=== PATIENT | female | born 1975 | race African-American/Black ===

== ENCOUNTER 2018-09-21 11:55 | Inpatient (IN) | payer MEDICARE, MEDICAID ==
[~2018-09-21] VITALS: Ht 142.2 cm; Wt 58.1 kg
[2018-09-21] MEDS ORDERED: ONDANSETRON HCL 4MG/2ML INJ IV STA (12:13)
[2018-09-21] MEDS ORDERED: FENTANYL CITRATE/PF 50MCG/ML 2ML VIAL IV ONE (12:15)
[2018-09-21 13:28] LABS: BASOPHILS % 1.2 % (0.0-2.0); EOSINOPHILS % 3.1 % (0.0-5.0); HEMATOCRIT. 21.8 % (36.0-48.0); HEMOGLOBIN. 7.4 g/dL (12.0-16.0); LYMPHOCYTES % 9.8 % (20.0-50.0); MEAN CORPUSCULAR HEMOGLOBIN 28.9 pg (28.0-32.0); MEAN CORPUSCULAR VOLUME 84.7 fL (81.0-99.0); MEAN PLATELET VOLUME 9.1 fl (7.4-10.4); MONOCYTES % 4.7 % (2.0-8.0); NEUTROPHILS % 81.2 % (40.0-76.0); PLATELET 221 x1000/uL (130-400); RED BLOOD CELL COUNT 2.57 mill/uL (4.2-5.4); RED CELL DISTRIBUTION WIDTH 18.3 % (11.6-14.6)
[2018-09-21 13:29] LABS: CHLORIDE 99 mEq/L (98-107)
[2018-09-21 13:38] LABS: INR 1.3; PARTIAL THROMBOPLASTIN TIME 32.6 sec (23.4-31.0); PROTHROMBIN TIME 12.6 sec (9.1-11.1)
[2018-09-21] MEDS ORDERED: POTASSIUM CHLORIDE 10MEQ TABLET SR PO ONE (14:00)
[2018-09-21 16:07] VITALS: BP 131/67
[2018-09-21] MEDS ORDERED: DIPHENHYDRAMINE 50MG CAPSULE PO PRN (17:30)
[2018-09-21] MEDS: DIPHENHYDRAMINE 50MG CAPSULE PO PRN (18:34)
[2018-09-21] MEDS: TRAMADOL 50MG TABLET PO PRN (18:35)
[2018-09-21] MEDS ORDERED: ACETAMINOPHEN 325MG TABLET PO PRN (19:15)
[2018-09-21] MEDS ORDERED: MAGNESIUM/ALUMINUM HYDROXIDE/SIMETHICONE 30ML UDC PO PRN (19:15)
[2018-09-21] MEDS ORDERED: LORAZEPAM 1MG TABLET PO PRN (19:15)
[2018-09-21 20:00] VITALS: BP 153/119
[2018-09-21] MEDS: IPRATROPIUM/ALBUTEROL 0.5-3(2.5)MG/3ML NEB HHN SCH (20:27)
[2018-09-21] MEDS: SODIUM CHLORIDE 0.9% INJ 3ML FLUSH IVF SCH (22:24)
[2018-09-21 23:55] VITALS: BP 135/91
[2018-09-22] VITALS (9 sets, daily range): BP systolic 125–153; BP diastolic 69–90
[2018-09-22] MEDS: IPRATROPIUM/ALBUTEROL 0.5-3(2.5)MG/3ML NEB HHN SCH ×4 (00:12→21:42)
[2018-09-22] MEDS: DIPHENHYDRAMINE 50MG CAPSULE PO PRN ×3 (00:57→21:03)
[2018-09-22] MEDS: TRAMADOL 50MG TABLET PO PRN ×3 (00:57→21:15)
[2018-09-22] MEDS: GUAIFENESIN-DM 200MG-20MG/10ML UDC PO PRN ×3 (01:25→22:45)
[2018-09-22] MEDS: METHYLPREDNISOLONE SOD SUCC 40 MG/ML VIAL IV SCH ×4 (01:25→22:45)
[2018-09-22] MEDS: SODIUM CHLORIDE 0.9% INJ 3ML FLUSH IVF SCH ×3 (06:02→21:03)
[2018-09-22] MEDS: SUCRALFATE 1 G/10 ML UDC PO SCH ×4 (06:02→21:03)
[2018-09-22] MEDS: PANTOPRAZOLE 40MG DR TABLET PO SCH ×2 (06:03→21:03)
[2018-09-22 06:23] LABS: HEMATOCRIT 24.3 % (36.0-48.0); HEMOGLOBIN 8.1 g/dL (12.0-16.0); MEAN CORPUSCULAR HEMOGLOBIN 28.7 pg (28.0-32.0); MEAN CORPUSCULAR VOLUME 86.1 fL (81.0-99.0); PLATELET 203 x1000/uL (130-400); RED BLOOD CELL COUNT 2.83 mill/uL (4.2-5.4); RED CELL DISTRIBUTION WIDTH 17.9 % (11.6-14.6)
[2018-09-22 18:20] LABS: HCG SCREEN NEGATIVE
[2018-09-23] VITALS: BP 140/65
[2018-09-23] MEDS: IPRATROPIUM/ALBUTEROL 0.5-3(2.5)MG/3ML NEB HHN SCH ×4 (01:15→20:45)
[2018-09-23] MEDS: ONDANSETRON HCL 4MG/2ML INJ IV PRN ×2 (01:54→15:14)
[2018-09-23 04:00] VITALS: BP 131/70
[2018-09-23] MEDS: SODIUM CHLORIDE 0.9% INJ 3ML FLUSH IVF SCH ×3 (05:41→22:06)
[2018-09-23] MEDS: DIPHENHYDRAMINE 50MG CAPSULE PO PRN ×3 (05:50→21:47)
[2018-09-23] MEDS: TRAMADOL 50MG TABLET PO PRN ×3 (05:51→20:24)
[2018-09-23] MEDS: GUAIFENESIN-DM 200MG-20MG/10ML UDC PO PRN ×3 (06:29→20:24)
[2018-09-23] MEDS: PANTOPRAZOLE 40MG DR TABLET PO SCH ×2 (06:30→21:47)
[2018-09-23] MEDS: METHYLPREDNISOLONE SOD SUCC 40 MG/ML VIAL IV SCH ×3 (06:30→22:06)
[2018-09-23] MEDS: SUCRALFATE 1 G/10 ML UDC PO SCH ×4 (06:30→20:24)
[2018-09-23 08:00] VITALS: BP 133/77
[2018-09-23 12:00] VITALS: BP 152/77
[2018-09-23 12:40] LABS: HEMATOCRIT. 23.6 % (36.0-48.0); HEMOGLOBIN. 7.9 g/dL (12.0-16.0); MEAN CORPUSCULAR HEMOGLOBIN 29.1 pg (28.0-32.0); PLATELET 226 x1000/uL (130-400); RED BLOOD CELL COUNT 2.71 mill/uL (4.2-5.4); RED CELL DISTRIBUTION WIDTH 18.2 % (11.6-14.6)
[2018-09-23] MEDS: IPRATROPIUM/ALBUTEROL 0.5-3(2.5)MG/3ML NEB HHN PRN (13:06)
[2018-09-23 16:00] VITALS: BP 142/80
[2018-09-23 17:37] LABS: PLATELET ESTIMATE NORMAL
[2018-09-23 20:00] VITALS: BP 142/74
[2018-09-23] MEDS: BISACODYL 10MG SUPP PR PRN (20:24)
[2018-09-24] VITALS (7 sets, daily range): BP systolic 128–164; BP diastolic 75–108
[2018-09-24] MEDS: IPRATROPIUM/ALBUTEROL 0.5-3(2.5)MG/3ML NEB HHN SCH ×4 (01:22→20:21)
[2018-09-24] MEDS: SODIUM CHLORIDE 0.9% INJ 3ML FLUSH IVF SCH ×3 (06:00→21:06)
[2018-09-24 06:46] LABS: HEMATOCRIT. 23.6 % (36.0-48.0); HEMOGLOBIN. 8.1 g/dL (12.0-16.0); MEAN CORPUSCULAR HEMOGLOBIN 29.7 pg (28.0-32.0); MEAN CORPUSCULAR VOLUME 87.1 fL (81.0-99.0); MEAN PLATELET VOLUME 8.6 fl (7.4-10.4); PLATELET 240 x1000/uL (130-400); RED BLOOD CELL COUNT 2.71 mill/uL (4.2-5.4); RED CELL DISTRIBUTION WIDTH 18.5 % (11.6-14.6)
[2018-09-24] MEDS: METHYLPREDNISOLONE SOD SUCC 40 MG/ML VIAL IV SCH ×3 (07:05→22:50)
[2018-09-24] MEDS: SUCRALFATE 1 G/10 ML UDC PO SCH ×4 (07:05→21:06)
[2018-09-24] MEDS: PANTOPRAZOLE 40MG DR TABLET PO SCH ×2 (07:05→21:06)
[2018-09-24] MEDS: TRAMADOL 50MG TABLET PO PRN ×2 (08:36→14:44)
[2018-09-24] MEDS: ONDANSETRON HCL 4MG/2ML INJ IV PRN (08:36)
[2018-09-24] MEDS: GUAIFENESIN-DM 200MG-20MG/10ML UDC PO PRN ×3 (08:36→18:05)
[2018-09-24] MEDS: DIPHENHYDRAMINE 50MG/ML VIAL IV PRN ×3 (08:41→18:05)
[2018-09-24 09:50] LABS: PLATELET ESTIMATE NORMAL
[2018-09-24] MEDS: BISACODYL 10MG SUPP PR PRN (10:31)
[2018-09-24] MEDS: CLONIDINE 0.1MG TABLET PO PRN (12:47)
[2018-09-25] VITALS: BP 121/90
[2018-09-25] MEDS: IPRATROPIUM/ALBUTEROL 0.5-3(2.5)MG/3ML NEB HHN SCH ×4 (01:52→21:13)
[2018-09-25] MEDS: GUAIFENESIN-DM 200MG-20MG/10ML UDC PO PRN ×4 (03:52→22:52)
[2018-09-25 04:00] VITALS: BP 151/85
[2018-09-25] MEDS: SODIUM CHLORIDE 0.9% INJ 3ML FLUSH IVF SCH ×3 (06:18→22:34)
[2018-09-25] MEDS: METHYLPREDNISOLONE SOD SUCC 40 MG/ML VIAL IV SCH ×3 (06:19→22:33)
[2018-09-25] MEDS: PANTOPRAZOLE 40MG DR TABLET PO SCH ×2 (06:19→22:33)
[2018-09-25] MEDS: SUCRALFATE 1 G/10 ML UDC PO SCH ×4 (06:19→22:34)
[2018-09-25] MEDS ORDERED: SODIUM BICARBONATE 4% (2.4MEQ) 5ML VIAL IV ONE (08:17)
[2018-09-25] MEDS ORDERED: LIDOCAINE HCL 1% 20ML VIAL (Pyxis) INJ ONE (08:17)
[2018-09-25] MEDS: TRAMADOL 50MG TABLET PO PRN ×3 (10:14→23:40)
[2018-09-25 12:00] VITALS: BP 158/84
[2018-09-25] MEDS: IPRATROPIUM/ALBUTEROL 0.5-3(2.5)MG/3ML NEB HHN PRN ×2 (13:01→17:47)
[2018-09-25] MEDS: ONDANSETRON HCL 4MG/2ML INJ IV PRN (14:52)
[2018-09-25] MEDS: DIPHENHYDRAMINE 50MG/ML VIAL IV PRN ×2 (14:55→21:35)
[2018-09-25] MEDS: DIPHENHYDRAMINE 50MG CAPSULE PO PRN (17:19)
[2018-09-25 20:00] VITALS: BP 160/82
[2018-09-25] MEDS: EPOETIN ALFA 10000UNITS/ML VIAL SUBCUT SCH (22:45)
[2018-09-26] VITALS: BP 156/93
[2018-09-26] MEDS: IPRATROPIUM/ALBUTEROL 0.5-3(2.5)MG/3ML NEB HHN SCH ×4 (01:22→20:30)
[2018-09-26] MEDS: DIPHENHYDRAMINE 50MG/ML VIAL IV PRN ×5 (01:45→20:51)
[2018-09-26 04:00] VITALS: BP 152/95
[2018-09-26 05:16] LABS: CANCER ANTIGEN 125 69.7 U/mL (0.0-38.1)
[2018-09-26] MEDS: SODIUM CHLORIDE 0.9% INJ 3ML FLUSH IVF SCH ×3 (06:11→20:55)
[2018-09-26] MEDS: PANTOPRAZOLE 40MG DR TABLET PO SCH ×2 (06:12→20:55)
[2018-09-26] MEDS: METHYLPREDNISOLONE SOD SUCC 40 MG/ML VIAL IV SCH ×3 (06:12→22:05)
[2018-09-26] MEDS: SUCRALFATE 1 G/10 ML UDC PO SCH ×4 (06:12→20:51)
[2018-09-26 07:10] LABS: HEMOGLOBIN. 8.9 g/dL (12.0-16.0); MEAN CORPUSCULAR HEMOGLOBIN 29.2 pg (28.0-32.0); MEAN CORPUSCULAR VOLUME 88.5 fL (81.0-99.0); MEAN PLATELET VOLUME 8.6 fl (7.4-10.4); PLATELET 231 x1000/uL (130-400); RED BLOOD CELL COUNT 3.05 mill/uL (4.2-5.4); RED CELL DISTRIBUTION WIDTH 18.6 % (11.6-14.6)
[2018-09-26 08:00] VITALS: BP 161/80
[2018-09-26] MEDS: GUAIFENESIN-DM 200MG-20MG/10ML UDC PO PRN ×3 (09:22→18:09)
[2018-09-26] MEDS: TRAMADOL 50MG TABLET PO PRN ×3 (09:26→20:55)
[2018-09-26] MEDS: ONDANSETRON HCL 4MG/2ML INJ IV PRN ×2 (09:27→18:09)
[2018-09-26 12:00] VITALS: BP 183/83
[2018-09-26 16:00] VITALS: BP 169/81
[2018-09-26] MEDS: CLONIDINE 0.1MG TABLET PO PRN ×2 (18:08→18:18)
[2018-09-26 20:00] VITALS: BP 125/69
[2018-09-27] VITALS: BP 161/96
[2018-09-27] MEDS: CLONIDINE 0.1MG TABLET PO PRN (01:42)
[2018-09-27] MEDS: IPRATROPIUM/ALBUTEROL 0.5-3(2.5)MG/3ML NEB HHN SCH ×4 (01:44→22:32)
[2018-09-27 04:00] VITALS: BP 153/78
[2018-09-27] MEDS: SODIUM CHLORIDE 0.9% INJ 3ML FLUSH IVF SCH ×3 (05:02→22:14)
[2018-09-27] MEDS: DIPHENHYDRAMINE 50MG/ML VIAL IV PRN ×4 (05:13→18:22)
[2018-09-27] MEDS: TRAMADOL 50MG TABLET PO PRN ×3 (05:18→20:52)
[2018-09-27] MEDS: METHYLPREDNISOLONE SOD SUCC 40 MG/ML VIAL IV SCH ×3 (06:13→22:15)
[2018-09-27] MEDS: SUCRALFATE 1 G/10 ML UDC PO SCH ×4 (06:14→20:50)
[2018-09-27] MEDS: PANTOPRAZOLE 40MG DR TABLET PO SCH ×2 (06:14→20:50)
[2018-09-27 07:19] LABS: PLATELET ESTIMATE NORMAL
[2018-09-27 07:40] LABS: HEMATOCRIT. 28.1 % (36.0-48.0); HEMOGLOBIN. 9.2 g/dL (12.0-16.0); MEAN CORPUSCULAR HEMOGLOBIN 29.1 pg (28.0-32.0); MEAN CORPUSCULAR VOLUME 88.5 fL (81.0-99.0); MEAN PLATELET VOLUME 8.7 fl (7.4-10.4); PLATELET 226 x1000/uL (130-400); RED BLOOD CELL COUNT 3.17 mill/uL (4.2-5.4); RED CELL DISTRIBUTION WIDTH 18.9 % (11.6-14.6)
[2018-09-27 08:00] VITALS: BP 140/79
[2018-09-27] MEDS: GUAIFENESIN-DM 200MG-20MG/10ML UDC PO PRN ×3 (08:04→18:22)
[2018-09-27 10:12] LABS: PLATELET ESTIMATE NORMAL
[2018-09-27 12:00] VITALS: BP 153/90
[2018-09-27] MEDS ORDERED: FLUTICASONE/VILANTEROL 200-25 BLST.W.DEV ORI SCH (13:15)
[2018-09-27 15:29] LABS: BG BASE EXCESS -4.1 mmol/L (-2.0-2.0); BG CARBOXYHEMOGLOBIN 0.1 % (0.5-1.5); BG DEOXYHEMOGLOBIN 7.5 % (0.0-5.0); BG FRACTION INSPIRED OXYGEN 21; BG HCO3 ACT 21.2 mmol/L (22.0-26.0); BG METHEMOGLOBIN 0.2 % (0.0-1.5); BG OXYGEN SATURATION 92.5 % (92.0-98.5); BG OXYHEMOGLOBIN 92.2 % (94.0-97.0); BG PCO2 39.8 mmHg (35.0-45.0); BG PH 7.345 (7.350-7.450); BG PO2 69.1 mmHg (75.0-100.0); BG SAMPLE SITE LEFT BRACHIAL; BG TOTAL HEMOGLOBIN 9.8 g/dL (12.0-18.0); BG VENT MODE ROOM AIR
[2018-09-27 16:00] VITALS: BP 151/89
[2018-09-27 20:00] VITALS: BP 157/90
[2018-09-27] MEDS: EPOETIN ALFA 10000UNITS/ML VIAL SUBCUT SCH (20:53)
[2018-09-27] MEDS: BUDESONIDE 0.5MG/2ML NEB HHN SCH (22:33)
[2018-09-28] VITALS: BP 119/77
[2018-09-28] MEDS: IPRATROPIUM/ALBUTEROL 0.5-3(2.5)MG/3ML NEB HHN SCH ×4 (02:39→20:01)
[2018-09-28] MEDS: TRAMADOL 50MG TABLET PO PRN ×3 (03:25→21:48)
[2018-09-28 04:00] VITALS: BP 142/89
[2018-09-28] MEDS: GUAIFENESIN-DM 200MG-20MG/10ML UDC PO PRN ×3 (06:12→21:47)
[2018-09-28] MEDS: DIPHENHYDRAMINE 50MG/ML VIAL IV PRN ×3 (06:12→22:51)
[2018-09-28] MEDS: SODIUM CHLORIDE 0.9% INJ 3ML FLUSH IVF SCH ×3 (06:13→21:41)
[2018-09-28] MEDS: SUCRALFATE 1 G/10 ML UDC PO SCH ×4 (06:13→21:41)
[2018-09-28] MEDS: PANTOPRAZOLE 40MG DR TABLET PO SCH ×2 (06:13→21:41)
[2018-09-28] MEDS: METHYLPREDNISOLONE SOD SUCC 40 MG/ML VIAL IV SCH ×3 (06:27→22:51)
[2018-09-28] MEDS: BUDESONIDE 0.5MG/2ML NEB HHN SCH ×2 (07:41→20:01)
[2018-09-28 08:00] VITALS: BP 157/94
[2018-09-28] MEDS: IPRATROPIUM/ALBUTEROL 0.5-3(2.5)MG/3ML NEB HHN PRN ×2 (11:27→17:49)
[2018-09-28 12:00] VITALS: BP_SYST 167; BP_SYST 168; BP_DIAS 99
[2018-09-28 16:00] VITALS: BP 146/91
[2018-09-28 20:00] VITALS: BP 160/84
[2018-09-29] VITALS: BP 165/89
[2018-09-29] MEDS: IPRATROPIUM/ALBUTEROL 0.5-3(2.5)MG/3ML NEB HHN SCH ×3 (00:10→12:24)
[2018-09-29 04:00] VITALS: BP 154/89
[2018-09-29] MEDS: IPRATROPIUM/ALBUTEROL 0.5-3(2.5)MG/3ML NEB HHN PRN (04:00)
[2018-09-29] MEDS: DIPHENHYDRAMINE 50MG/ML VIAL IV PRN ×2 (04:10→12:43)
[2018-09-29] MEDS: GUAIFENESIN-DM 200MG-20MG/10ML UDC PO PRN ×2 (04:10→12:50)
[2018-09-29] MEDS: SODIUM CHLORIDE 0.9% INJ 3ML FLUSH IVF SCH (06:16)
[2018-09-29] MEDS: PANTOPRAZOLE 40MG DR TABLET PO SCH (06:16)
[2018-09-29] MEDS: SUCRALFATE 1 G/10 ML UDC PO SCH ×2 (06:16→12:50)
[2018-09-29] MEDS: BUDESONIDE 0.5MG/2ML NEB HHN SCH (07:42)
[2018-09-29 08:00] VITALS: BP 165/100
[2018-09-29 08:07] VITALS: BP 155/87
[2018-09-29] MEDS: TRAMADOL 50MG TABLET PO PRN (10:28)
[2018-09-29 12:00] VITALS: BP 162/97
[2018-09-29] MEDS: CLONIDINE 0.1MG TABLET PO PRN (12:43)
[2018-09-29] MEDS: METHYLPREDNISOLONE SOD SUCC 40 MG/ML VIAL IV SCH (12:43)
[2018-09-29 16:46] VITALS: BP 160/90
== END 2018-09-29 17:40 | disposition home or self-care (01) | DRG 314 ==
LOC: ER 13:02 → 8WST 13:20 → EDBEDREQTM 13:30 → EDBEDREQ 13:30 → ENRESERV 13:43
PROVIDERS: ADMIT Internal Medicine; ATTEND Internal Medicine
PROC: 5A1D70Z Performance of Urinary Filtration, Intermittent, Less than 6 Hours Per Day (ICD-10-PCS; principal; 2018-09-22)
PROC: 0W9G3ZZ Drainage of Peritoneal Cavity, Percutaneous Approach (ICD-10-PCS; 2018-09-25)
PROC: 30233N1 Transfusion of Nonautologous Red Blood Cells into Peripheral Vein, Percutaneous Approach (ICD-10-PCS; 2018-09-25)
PROC: 5A1D70Z Performance of Urinary Filtration, Intermittent, Less than 6 Hours Per Day (ICD-10-PCS; 2018-09-26)
PROC: 5A1D70Z Performance of Urinary Filtration, Intermittent, Less than 6 Hours Per Day (ICD-10-PCS; 2018-09-28)
DX: T82.838A Hemorrhage due to vascular prosthetic devices, implants and grafts, initial encounter (principal); N18.6 End stage renal disease; D62 Acute posthemorrhagic anemia; I13.2 Hypertensive heart and chronic kidney disease with heart failure and with stage 5 chronic kidney disease, or end stage renal disease; J45.901 Unspecified asthma with (acute) exacerbation; R18.8 Other ascites; I48.91 Unspecified atrial fibrillation; I50.9 Heart failure, unspecified; J44.9 Chronic obstructive pulmonary disease, unspecified; E83.39 Other disorders of phosphorus metabolism; M32.14 Glomerular disease in systemic lupus erythematosus; R09.02 Hypoxemia; Y84.1 Kidney dialysis as the cause of abnormal reaction of the patient, or of later complication, without mention of misadventure at the time of the procedure; Z85.6 Personal history of leukemia; Z87.11 Personal history of peptic ulcer disease; Y92.89 Other specified places as the place of occurrence of the external cause; Z93.0 Tracheostomy status; Z99.2 Dependence on renal dialysis; Z79.899 Other long term (current) drug therapy; Z88.5 Allergy status to narcotic agent; Z88.6 Allergy status to analgesic agent; Z88.8 Allergy status to other drugs, medicaments and biological substances
CPT/HCPCS: 36415; 36600; 49083; 71045; 71250; 74176; 80048; 80051; 82375; 82378; 82805; 84484; 84703; 85027; 85651; 86141; 86160; 86304; 86850; 86900; 86920; 88108; 88312; 93005; 93306; 94640; 96374; 96375; 99285; J0885; J1200; J2405; J2920; J3010; J3490; J7050; J7620; J7626; P9016; Q0163

== ENCOUNTER 2018-10-13 14:41 | Inpatient (IN) | payer MEDICARE, MEDICAID ==
[~2018-10-13] VITALS: Ht 142.2 cm; Wt 64.7 kg
[2018-10-13] MEDS ORDERED: SODIUM CHLORIDE 0.9% 500 ML IV ONE ×2 (15:17→21:45)
[2018-10-13] MEDS ORDERED: MORPHINE SULFATE 4 MG/ML CPJ (NOT FOR IM USE) IV STA (15:17)
[2018-10-13] MEDS ORDERED: ONDANSETRON HCL 4MG/2ML INJ IV STA (15:17)
[2018-10-13] MEDS ORDERED: VANCOMYCIN 1 G PREMIX 200 ML IV ONE (16:45)
[2018-10-13] MEDS ORDERED: PIPERACILLIN/TAZ 3.375G PREMIX 50 ML IV ONE (16:45)
[2018-10-13 17:23] LABS: HEMATOCRIT. 27.2 % (36.0-48.0); HEMOGLOBIN. 8.9 g/dL (12.0-16.0); MEAN CORPUSCULAR HEMOGLOBIN 29.5 pg (28.0-32.0); MEAN CORPUSCULAR VOLUME 89.8 fL (81.0-99.0); MEAN PLATELET VOLUME 9.5 fl (7.4-10.4); PLATELET 71 x1000/uL (130-400); RED BLOOD CELL COUNT 3.02 mill/uL (4.2-5.4); RED CELL DISTRIBUTION WIDTH 18.5 % (11.6-14.6)
[2018-10-13 17:25] LABS: CHLORIDE 100 mEq/L (98-107)
[2018-10-13 17:26] LABS: INR 1.4; PROTHROMBIN TIME 14.2 sec (9.1-11.1)
[2018-10-13 19:07] LABS: PLATELET ESTIMATE MARKEDLY DECREASED
[2018-10-13] MEDS ORDERED: MORPHINE SULFATE 4 MG/ML CPJ (NOT FOR IM USE) IV ONE (19:15)
[2018-10-13] MEDS ORDERED: DEXTROSE 50% WATER 50ML SYRINGE IV SCH (21:00)
[2018-10-13 22:30] VITALS: BP 94/54
[2018-10-14] VITALS (19 sets, daily range): BP systolic 82–134; BP diastolic 48–77
[2018-10-14] MEDS ORDERED: HYDROCODONE/ACETAMINOPHEN 5/325MG TABLET PO PRN (01:30)
[2018-10-14] MEDS ORDERED: ACETAMINOPHEN 325MG TABLET PO PRN (01:30)
[2018-10-14] MEDS ORDERED: ONDANSETRON HCL 4MG/2ML INJ IV PRN (01:30)
[2018-10-14 07:47] LABS: HEMATOCRIT. 23.3 % (36.0-48.0); HEMOGLOBIN. 7.5 g/dL (12.0-16.0); MEAN CORPUSCULAR HEMOGLOBIN 28.9 pg (28.0-32.0); MEAN CORPUSCULAR VOLUME 89.8 fL (81.0-99.0); MEAN PLATELET VOLUME 10.1 fl (7.4-10.4); PLATELET 51 x1000/uL (130-400); RED CELL DISTRIBUTION WIDTH 18.5 % (11.6-14.6)
[2018-10-14] MEDS ORDERED: HYDROMORPHONE HCL/PF 2MG/ML CPJ IV PRN (09:00)
[2018-10-14 09:10] LABS: PLATELET ESTIMATE DECREASED
[2018-10-14] MEDS ORDERED: PNEUMOCOCCAL VACCINE IM ONE (10:00)
[2018-10-14] MEDS ORDERED: EPINEPHRINE 0.1MG/ML (1:10,000) 10ML SYR ONE ×2 (10:27→15:03)
[2018-10-14] MEDS ORDERED: FURO-151 PO (10:28)
[2018-10-14] MEDS ORDERED: P20 PO (10:28)
[2018-10-14] MEDS ORDERED: [UNRECOGNIZED DRUG - CODE] PO (10:54)
[2018-10-14] MEDS ORDERED: METH500T6 PO (10:54)
[2018-10-14] MEDS ORDERED: MEGE400O4 PO (10:54)
[2018-10-14] MEDS ORDERED: TRAM50TA PO (10:55)
[2018-10-14] MEDS ORDERED: CARV6.2548 PO (11:00)
[2018-10-14] MEDS ORDERED: ALBU18HF2 IH (11:00)
[2018-10-14] MEDS ORDERED: PANT40TA4 PO (11:00)
[2018-10-14] MEDS ORDERED: SUCR1TAB PO (11:01)
[2018-10-14] MEDS ORDERED: CEPH500C2 PO (11:01)
[2018-10-14] MEDS ORDERED: DOCU-150 PO (11:08)
[2018-10-14] MEDS ORDERED: PREG75CA PO (11:08)
[2018-10-14] MEDS ORDERED: DEXT15DR5 OP (11:08)
[2018-10-14] MEDS ORDERED: HYDR200T35 PO (11:08)
[2018-10-14] MEDS: METHYLPREDNISOLONE SOD SUCC 125 MG/2 ML VIAL IV NR ×2 (11:26→11:45)
[2018-10-14] MEDS: IPRATROPIUM/ALBUTEROL 0.5-3(2.5)MG/3ML NEB HHN PRN ×2 (11:29→20:43)
[2018-10-14] MEDS: PIPERACILLIN/TAZ 2.25G PREMIX 50 ML IV SCH ×2 (11:45→19:01)
[2018-10-14] MEDS ORDERED: VANCOMYCIN 500 MG PREMIX 100 ML IV NR (13:00)
[2018-10-14] MEDS ORDERED: VANCOMYCIN 750 MG PREMIX 150 ML IV NR (13:30)
[2018-10-14] MEDS ORDERED: CALCIUM CHLORIDE 1GM/10ML SYR IV ONE (15:03)
[2018-10-14] MEDS ORDERED: SODIUM BICARBONATE 7.5% 0.9 MEQ/ML 50ML SYR IV ONE (15:03)
[2018-10-14] MEDS: NOREPINEPHRINE 8 MG in DEXT 5% WATER 242 ML IV PRN (17:27)
[2018-10-14] MEDS ORDERED: VANCOMYCIN 750 MG PREMIX 150 ML IV SCH (18:00)
[2018-10-14 18:58] LABS: HEMATOCRIT 23.7 % (36.0-48.0); HEMOGLOBIN 7.7 g/dL (12.0-16.0); MEAN CORPUSCULAR HEMOGLOBIN 29.6 pg (28.0-32.0); MEAN CORPUSCULAR VOLUME 91.7 fL (81.0-99.0); RED BLOOD CELL COUNT 2.59 mill/uL (4.2-5.4); RED CELL DISTRIBUTION WIDTH 19.3 % (11.6-14.6)
[2018-10-14] MEDS: METHYLPREDNISOLONE SOD SUCC 40 MG/ML VIAL IV SCH (19:00)
[2018-10-14 19:02] LABS: PLATELET 47 x1000/uL (130-400)
[2018-10-14] MEDS ORDERED: NOREPINEPHRINE 8 MG in DEXT 5% WATER 242 ML IV PRN (20:00)
[2018-10-14] MEDS ORDERED: DEXT 5%/0.9% NACL 1,000 ML IV SCH (20:00)
[2018-10-14] MEDS: LINEZOLID 600 MG PREMIX 300 ML IV SCH (20:10)
[2018-10-14 21:43] LABS: BG BASE EXCESS 0.4 mmol/L (-2.0-2.0); BG FRACTION INSPIRED OXYGEN 100; BG HCO3 ACT 23.4 mmol/L (22.0-26.0); BG PCO2 33.1 mmHg (35.0-45.0); BG PEEP (cmH2O) 0 cmH2O; BG PH 7.467 (7.350-7.450); BG PO2 294.4 mmHg (75.0-100.0); BG SAMPLE SITE LEFT RADIAL; BG TIDAL VOLUME(mL) 500 mL; BG VENT MODE VENT - A/C; BG VENT RATE 12 set
[2018-10-15] VITALS (98 sets, daily range): BP systolic 90–157; BP diastolic 23–95
[2018-10-15] MEDS: METHYLPREDNISOLONE SOD SUCC 40 MG/ML VIAL IV SCH ×3 (01:10→18:00)
[2018-10-15] MEDS: PIPERACILLIN/TAZ 2.25G PREMIX 50 ML IV SCH ×3 (01:10→18:00)
[2018-10-15] MEDS: NOREPINEPHRINE 8 MG in DEXT 5% WATER 242 ML IV PRN ×2 (03:14→13:42)
[2018-10-15 05:46] LABS: HEMATOCRIT. 27.1 % (36.0-48.0); HEMOGLOBIN. 8.8 g/dL (12.0-16.0); MEAN CORPUSCULAR HEMOGLOBIN 29.2 pg (28.0-32.0); MEAN CORPUSCULAR VOLUME 90.1 fL (81.0-99.0); MEAN PLATELET VOLUME 11.4 fl (7.4-10.4); PLATELET 71 x1000/uL (130-400); RED BLOOD CELL COUNT 3.01 mill/uL (4.2-5.4); RED CELL DISTRIBUTION WIDTH 18.4 % (11.6-14.6)
[2018-10-15] MEDS: LINEZOLID 600 MG PREMIX 300 ML IV SCH (08:00)
[2018-10-15] MEDS ORDERED: DEXTROSE 50% WATER 50ML SYRINGE IV PRN (09:00)
[2018-10-15] MEDS: BLOOD SUGAR DIAGNOSTIC STRIP TEST SCH ×4 (09:00→23:30)
[2018-10-15] MEDS: INSULIN LISPRO 100 UNITS/ML SUBCUT SCH ×4 (09:00→23:30)
[2018-10-15 10:19] LABS: PLATELET ESTIMATE DECREASED
[2018-10-15] MEDS ORDERED: DEXT 10% WATER 1,000 ML IV SCH (11:45)
[2018-10-15] MEDS ORDERED: VANCOMYCIN 1 G PREMIX 200 ML IV NR (17:00)
[2018-10-16] VITALS (81 sets, daily range): BP systolic 88–160; BP diastolic 48–97
[2018-10-16] MEDS: METHYLPREDNISOLONE SOD SUCC 40 MG/ML VIAL IV SCH ×3 (01:18→18:34)
[2018-10-16] MEDS: PIPERACILLIN/TAZ 2.25G PREMIX 50 ML IV SCH ×2 (01:18→11:05)
[2018-10-16] MEDS: BLOOD SUGAR DIAGNOSTIC STRIP TEST SCH ×3 (05:12→17:26)
[2018-10-16] MEDS: INSULIN LISPRO 100 UNITS/ML SUBCUT SCH ×3 (05:12→18:34)
[2018-10-16 05:53] LABS: HEMATOCRIT. 23.4 % (36.0-48.0); HEMOGLOBIN. 7.6 g/dL (12.0-16.0); MEAN CORPUSCULAR HEMOGLOBIN 29.1 pg (28.0-32.0); MEAN CORPUSCULAR VOLUME 89.6 fL (81.0-99.0); MEAN PLATELET VOLUME 11.4 fl (7.4-10.4); RED BLOOD CELL COUNT 2.61 mill/uL (4.2-5.4); RED CELL DISTRIBUTION WIDTH 18.9 % (11.6-14.6)
[2018-10-16 06:39] LABS: PLATELET 50 x1000/uL (130-400)
[2018-10-16 07:10] LABS: PHOSPHORUS 4.1 mg/dL (2.5-4.9)
[2018-10-16 13:50] LABS: PLATELET ESTIMATE DECREASED
[2018-10-16] MEDS: NOREPINEPHRINE 8 MG in DEXT 5% WATER 242 ML IV PRN (15:14)
[2018-10-16] MEDS ORDERED: ISOS30TA6 MT (16:05)
[2018-10-16] MEDS ORDERED: ATOR20TA65 PO (16:05)
[2018-10-16] MEDS ORDERED: AMLO5TAB88 MT (16:05)
[2018-10-16] MEDS ORDERED: METH4TAB17 MT (16:05)
[2018-10-16] MEDS ORDERED: LISI-604 MT (16:05)
[2018-10-16] MEDS ORDERED: CEFTRIAXONE 2 G in DEXTROSE 5% WATER 50 ML IV SCH (18:00)
[2018-10-16] MEDS: DEXT 10% WATER 1,000 ML IV SCH (18:36)
[2018-10-17] VITALS (93 sets, daily range): BP systolic 66–165; BP diastolic 45–77
[2018-10-17] MEDS: BLOOD SUGAR DIAGNOSTIC STRIP TEST SCH ×4 (00:19→17:15)
[2018-10-17] MEDS: METHYLPREDNISOLONE SOD SUCC 40 MG/ML VIAL IV SCH ×3 (02:00→17:15)
[2018-10-17] MEDS: INSULIN LISPRO 100 UNITS/ML SUBCUT SCH ×4 (06:00→17:17)
[2018-10-17] MEDS: DOCUSATE SODIUM SUGAR FREE 100MG/10ML UDC NG SCH (10:20)
[2018-10-17] MEDS: LACTULOSE 20G/30ML UDC PO PRN ×2 (10:25→17:15)
[2018-10-17] MEDS ORDERED: EPOETIN ALFA 10000UNITS/ML VIAL SUBCUT SCH (11:00)
[2018-10-17] MEDS: DEXT 10% WATER 1,000 ML IV SCH (12:34)
[2018-10-17] MEDS: CEFTRIAXONE 2 G in DEXTROSE 5% WATER 50 ML IV SCH (16:19)
[2018-10-17 22:40] LABS: HEMATOCRIT. 22.8 % (36.0-48.0); HEMOGLOBIN. 7.5 g/dL (12.0-16.0); MEAN CORPUSCULAR HEMOGLOBIN 28.8 pg (28.0-32.0); MEAN CORPUSCULAR VOLUME 87.8 fL (81.0-99.0); MEAN PLATELET VOLUME 10.2 fl (7.4-10.4); RED BLOOD CELL COUNT 2.59 mill/uL (4.2-5.4); RED CELL DISTRIBUTION WIDTH 18.4 % (11.6-14.6)
[2018-10-17 22:51] LABS: PLATELET 19 x1000/uL (130-400)
[2018-10-17 23:12] LABS: PLATELET ESTIMATE MARKEDLY DECREASED
[2018-10-18] VITALS (77 sets, daily range): BP systolic 14–181; BP diastolic 45–74
[2018-10-18] MEDS: INSULIN LISPRO 100 UNITS/ML SUBCUT SCH ×4 (01:00→18:36)
[2018-10-18] MEDS: METHYLPREDNISOLONE SOD SUCC 40 MG/ML VIAL IV SCH ×3 (02:00→18:35)
[2018-10-18] MEDS: DEXT 10% WATER 1,000 ML IV SCH (02:57)
[2018-10-18] MEDS: CEFTRIAXONE 2 G in DEXTROSE 5% WATER 50 ML IV SCH ×2 (04:00→16:33)
[2018-10-18] MEDS: BLOOD SUGAR DIAGNOSTIC STRIP TEST SCH ×4 (06:00→18:08)
[2018-10-18 06:09] LABS: HEMATOCRIT. 23.6 % (36.0-48.0); HEMOGLOBIN. 7.6 g/dL (12.0-16.0); MEAN CORPUSCULAR HEMOGLOBIN 28.3 pg (28.0-32.0); MEAN CORPUSCULAR VOLUME 87.8 fL (81.0-99.0); MEAN PLATELET VOLUME 10.5 fl (7.4-10.4); RED BLOOD CELL COUNT 2.69 mill/uL (4.2-5.4); RED CELL DISTRIBUTION WIDTH 18.3 % (11.6-14.6)
[2018-10-18 06:51] LABS: PLATELET 18 x1000/uL (130-400)
[2018-10-18 08:12] LABS: PLATELET ESTIMATE MARKEDLY DECREASED
[2018-10-18] MEDS: DOCUSATE SODIUM SUGAR FREE 100MG/10ML UDC NG SCH (09:24)
[2018-10-18 13:07] LABS: HIV SCREEN 4G Non Reactive (Non Reactive)
[2018-10-18] MEDS: NOREPINEPHRINE 8 MG in DEXT 5% WATER 242 ML IV PRN (13:30)
[2018-10-19] VITALS (96 sets, daily range): BP systolic 108–186; BP diastolic 50–91
[2018-10-19] MEDS: METHYLPREDNISOLONE SOD SUCC 40 MG/ML VIAL IV SCH ×3 (01:37→18:08)
[2018-10-19] MEDS: CEFTRIAXONE 2 G in DEXTROSE 5% WATER 50 ML IV SCH ×2 (04:00→16:04)
[2018-10-19] MEDS: BLOOD SUGAR DIAGNOSTIC STRIP TEST SCH ×4 (06:00→18:00)
[2018-10-19] MEDS: INSULIN LISPRO 100 UNITS/ML SUBCUT SCH ×4 (06:00→18:00)
[2018-10-19] MEDS: DEXTROSE 5% WATER 1,000 ML IV SCH ×2 (08:46→20:00)
[2018-10-19] MEDS: DOCUSATE SODIUM SUGAR FREE 100MG/10ML UDC NG SCH (08:46)
[2018-10-19 15:52] LABS: HEMATOCRIT. 29.3 % (36.0-48.0); HEMOGLOBIN. 9.8 g/dL (12.0-16.0); MEAN CORPUSCULAR HEMOGLOBIN 28.9 pg (28.0-32.0); MEAN CORPUSCULAR VOLUME 86.5 fL (81.0-99.0); MEAN PLATELET VOLUME 10.7 fl (7.4-10.4); RED BLOOD CELL COUNT 3.39 mill/uL (4.2-5.4); RED CELL DISTRIBUTION WIDTH 16.9 % (11.6-14.6)
[2018-10-19 15:57] LABS: PLATELET 43 x1000/uL (130-400)
[2018-10-19] MEDS: MICAFUNGIN 100 MG in SODIUM CHLORIDE 0.9% 100 ML IV SCH (16:04)
[2018-10-19 16:38] LABS: PLATELET ESTIMATE MARKEDLY DECREASED
[2018-10-20] VITALS (73 sets, daily range): BP systolic 105–178; BP diastolic 48–91
[2018-10-20] MEDS: BLOOD SUGAR DIAGNOSTIC STRIP TEST SCH ×5 (00:14→23:55)
[2018-10-20] MEDS: INSULIN LISPRO 100 UNITS/ML SUBCUT SCH ×5 (00:32→23:55)
[2018-10-20] MEDS: METHYLPREDNISOLONE SOD SUCC 40 MG/ML VIAL IV SCH ×3 (03:04→18:58)
[2018-10-20] MEDS: CEFTRIAXONE 2 G in DEXTROSE 5% WATER 50 ML IV SCH ×2 (03:04→15:48)
[2018-10-20 07:28] LABS: HEMATOCRIT. 25.9 % (36.0-48.0); HEMOGLOBIN. 8.6 g/dL (12.0-16.0); MEAN CORPUSCULAR VOLUME 86.6 fL (81.0-99.0); MEAN PLATELET VOLUME 10.9 fl (7.4-10.4); RED BLOOD CELL COUNT 2.99 mill/uL (4.2-5.4); RED CELL DISTRIBUTION WIDTH 16.6 % (11.6-14.6)
[2018-10-20 07:47] LABS: PLATELET 42 x1000/uL (130-400)
[2018-10-20 08:09] LABS: PLATELET ESTIMATE MARKEDLY DECREASED
[2018-10-20] MEDS: IPRATROPIUM/ALBUTEROL 0.5-3(2.5)MG/3ML NEB HHN PRN ×3 (08:10→15:55)
[2018-10-20 08:34] LABS: BG CARBOXYHEMOGLOBIN 0.3 % (0.5-1.5); BG FRACTION INSPIRED OXYGEN 40; BG METHEMOGLOBIN 0.7 % (0.0-1.5); BG OXYGEN SATURATION 83.8 % (92.0-98.5); BG PCO2 35.4 mmHg (35.0-45.0); BG PH 7.431 (7.350-7.450); BG PO2 49.7 mmHg (75.0-100.0); BG SAMPLE SITE LEFT RADIAL; BG TIDAL VOLUME(mL) 500 mL; BG TOTAL HEMOGLOBIN 9.7 g/dL (12.0-18.0); BG VENT MODE VENT - A/C; BG VENT RATE 12 set
[2018-10-20] MEDS: DOCUSATE SODIUM SUGAR FREE 100MG/10ML UDC NG SCH (09:00)
[2018-10-20] MEDS: MICAFUNGIN 100 MG in SODIUM CHLORIDE 0.9% 100 ML IV SCH (15:48)
[2018-10-20] MEDS: DEXTROSE 5% WATER 1,000 ML IV SCH (18:30)
[2018-10-21] VITALS (74 sets, daily range): BP systolic 120–177; BP diastolic 45–96
[2018-10-21] MEDS: METHYLPREDNISOLONE SOD SUCC 40 MG/ML VIAL IV SCH ×3 (01:38→18:32)
[2018-10-21] MEDS: CEFTRIAXONE 2 G in DEXTROSE 5% WATER 50 ML IV SCH ×2 (04:01→16:25)
[2018-10-21 05:36] LABS: HEMATOCRIT. 27.6 % (36.0-48.0); HEMOGLOBIN. 9.1 g/dL (12.0-16.0); MEAN CORPUSCULAR HEMOGLOBIN 28.7 pg (28.0-32.0); MEAN CORPUSCULAR VOLUME 87.7 fL (81.0-99.0); MEAN PLATELET VOLUME 11.2 fl (7.4-10.4); PLATELET 75 x1000/uL (130-400); RED BLOOD CELL COUNT 3.15 mill/uL (4.2-5.4); RED CELL DISTRIBUTION WIDTH 16.7 % (11.6-14.6)
[2018-10-21] MEDS: BLOOD SUGAR DIAGNOSTIC STRIP TEST SCH ×3 (06:17→18:00)
[2018-10-21] MEDS: INSULIN LISPRO 100 UNITS/ML SUBCUT SCH ×3 (06:30→18:30)
[2018-10-21] MEDS: IPRATROPIUM/ALBUTEROL 0.5-3(2.5)MG/3ML NEB HHN PRN ×2 (08:23→14:53)
[2018-10-21] MEDS: DOCUSATE SODIUM SUGAR FREE 100MG/10ML UDC NG SCH (08:57)
[2018-10-21 09:45] LABS: PLATELET ESTIMATE DECREASED
[2018-10-21 12:14] LABS: BG BASE EXCESS 2.2 mmol/L (-2.0-2.0); BG CARBOXYHEMOGLOBIN 0.1 % (0.5-1.5); BG DEOXYHEMOGLOBIN 1.7 % (0.0-5.0); BG HCO3 ACT 26.3 mmol/L (22.0-26.0); BG METHEMOGLOBIN 0.2 % (0.0-1.5); BG OXYGEN SATURATION 98.3 % (92.0-98.5); BG PCO2 38.8 mmHg (35.0-45.0); BG PH 7.449 (7.350-7.450); BG PO2 130.2 mmHg (75.0-100.0); BG SAMPLE SITE LEFT RADIAL; BG TIDAL VOLUME(mL) 500 mL; BG TOTAL HEMOGLOBIN 10.5 g/dL (12.0-18.0); BG VENT MODE VENT - A/C; BG VENT RATE 12 set
[2018-10-21] MEDS: PANTOPRAZOLE SODIUM 40 MG/VIAL IV SCH (13:00)
[2018-10-21] MEDS: MICAFUNGIN 100 MG in SODIUM CHLORIDE 0.9% 100 ML IV SCH (14:44)
[2018-10-21] MEDS ORDERED: CLONIDINE 0.1MG TABLET PO PRN (18:45)
[2018-10-21] MEDS: DEXTROSE 5% WATER 1,000 ML IV SCH (19:00)
[2018-10-22] VITALS (45 sets, daily range): BP systolic 110–155; BP diastolic 45–94
[2018-10-22] MEDS: BLOOD SUGAR DIAGNOSTIC STRIP TEST SCH ×4 (00:20→17:42)
[2018-10-22] MEDS: INSULIN LISPRO 100 UNITS/ML SUBCUT SCH ×4 (00:28→17:41)
[2018-10-22] MEDS: METHYLPREDNISOLONE SOD SUCC 40 MG/ML VIAL IV SCH ×2 (02:38→09:43)
[2018-10-22] MEDS: CEFTRIAXONE 2 G in DEXTROSE 5% WATER 50 ML IV SCH ×2 (05:22→16:49)
[2018-10-22 05:31] LABS: HEMATOCRIT. 25.7 % (36.0-48.0); HEMOGLOBIN. 8.4 g/dL (12.0-16.0); MEAN CORPUSCULAR HEMOGLOBIN 28.7 pg (28.0-32.0); MEAN CORPUSCULAR VOLUME 87.9 fL (81.0-99.0); MEAN PLATELET VOLUME 11.1 fl (7.4-10.4); PLATELET 119 x1000/uL (130-400); RED BLOOD CELL COUNT 2.93 mill/uL (4.2-5.4); RED CELL DISTRIBUTION WIDTH 16.8 % (11.6-14.6)
[2018-10-22 06:09] LABS: PHOSPHORUS 5.7 mg/dL (2.5-4.9)
[2018-10-22] MEDS: DEXT 5%/0.45% NACL 1000ML 1,000 ML IV SCH (06:32)
[2018-10-22] MEDS: IPRATROPIUM/ALBUTEROL 0.5-3(2.5)MG/3ML NEB HHN PRN ×4 (08:37→20:24)
[2018-10-22] MEDS: DOCUSATE SODIUM SUGAR FREE 100MG/10ML UDC NG SCH (09:00)
[2018-10-22] MEDS: PANTOPRAZOLE SODIUM 40 MG/VIAL IV SCH (09:43)
[2018-10-22] MEDS ORDERED: FENTANYL CITRATE/PF 50MCG/ML 2ML VIAL ONE (11:37)
[2018-10-22] MEDS ORDERED: MIDAZOLAM HCL 5 MG/5 ML VIAL ONE (11:37)
[2018-10-22] MEDS ORDERED: SIMETHICONE 40 MG/0.6 ML 30ML ONE (11:38)
[2018-10-22 11:40] LABS: PLATELET ESTIMATE SLIGHTLY DECREASED
[2018-10-22] MEDS: MICAFUNGIN 100 MG in SODIUM CHLORIDE 0.9% 100 ML IV SCH (14:08)
[2018-10-23] VITALS (33 sets, daily range): BP systolic 120–185; BP diastolic 55–96
[2018-10-23] MEDS: CEFTRIAXONE 2 G in DEXTROSE 5% WATER 50 ML IV SCH ×2 (04:00→15:08)
[2018-10-23 05:37] LABS: HEMATOCRIT. 28.4 % (36.0-48.0); HEMOGLOBIN. 9.3 g/dL (12.0-16.0); MEAN CORPUSCULAR VOLUME 88.6 fL (81.0-99.0); MEAN PLATELET VOLUME 11.5 fl (7.4-10.4); PLATELET 138 x1000/uL (130-400); RED BLOOD CELL COUNT 3.21 mill/uL (4.2-5.4); RED CELL DISTRIBUTION WIDTH 16.9 % (11.6-14.6)
[2018-10-23 06:26] LABS: T4 FREE 0.48 ng/dL (0.76-1.46)
[2018-10-23] MEDS: BLOOD SUGAR DIAGNOSTIC STRIP TEST SCH ×4 (06:55→17:12)
[2018-10-23] MEDS: INSULIN LISPRO 100 UNITS/ML SUBCUT SCH ×5 (06:59→23:55)
[2018-10-23 07:22] LABS: PLATELET ESTIMATE NORMAL
[2018-10-23] MEDS: IPRATROPIUM/ALBUTEROL 0.5-3(2.5)MG/3ML NEB HHN PRN ×2 (07:24→19:49)
[2018-10-23] MEDS: DOCUSATE SODIUM SUGAR FREE 100MG/10ML UDC NG SCH (08:13)
[2018-10-23] MEDS: PANTOPRAZOLE SODIUM 40 MG/VIAL IV SCH (08:26)
[2018-10-23] MEDS: METHYLPREDNISOLONE SOD SUCC 40 MG/ML VIAL IV SCH (12:06)
[2018-10-23] MEDS: MICAFUNGIN 100 MG in SODIUM CHLORIDE 0.9% 100 ML IV SCH (15:08)
[2018-10-23] MEDS: DEXT 5%/0.45% NACL 1000ML 1,000 ML IV SCH (17:20)
[2018-10-23] MEDS ORDERED: ENALAPRIL 2.5MG/2ML VIAL 2ML IV SCH (17:45)
[2018-10-23] MEDS ORDERED: ENALAPRIL 2.5MG/2ML VIAL 2ML IV PRN (17:45)
[2018-10-24] VITALS (53 sets, daily range): BP systolic 104–179; BP diastolic 45–98
[2018-10-24] MEDS: BLOOD SUGAR DIAGNOSTIC STRIP TEST SCH ×4 (00:15→18:00)
[2018-10-24] MEDS: IPRATROPIUM/ALBUTEROL 0.5-3(2.5)MG/3ML NEB HHN PRN ×3 (00:34→08:45)
[2018-10-24] MEDS: ENALAPRIL 2.5MG/2ML VIAL 2ML IV PRN (00:40)
[2018-10-24] MEDS: CEFTRIAXONE 2 G in DEXTROSE 5% WATER 50 ML IV SCH ×2 (03:16→17:09)
[2018-10-24 05:23] LABS: HEMATOCRIT. 27.1 % (36.0-48.0); HEMOGLOBIN. 8.8 g/dL (12.0-16.0); MEAN CORPUSCULAR HEMOGLOBIN 28.7 pg (28.0-32.0); MEAN CORPUSCULAR VOLUME 88.3 fL (81.0-99.0); MEAN PLATELET VOLUME 10.5 fl (7.4-10.4); PLATELET 139 x1000/uL (130-400); RED BLOOD CELL COUNT 3.07 mill/uL (4.2-5.4); RED CELL DISTRIBUTION WIDTH 17.2 % (11.6-14.6)
[2018-10-24] MEDS: INSULIN LISPRO 100 UNITS/ML SUBCUT SCH ×3 (05:46→19:25)
[2018-10-24] MEDS: DEXT 5%/0.45% NACL 1000ML 1,000 ML IV SCH (06:00)
[2018-10-24 08:02] LABS: BG BASE EXCESS 1.9 mmol/L (-2.0-2.0); BG CARBOXYHEMOGLOBIN 0.2 % (0.5-1.5); BG FRACTION INSPIRED OXYGEN 40; BG HCO3 ACT 25.1 mmol/L (22.0-26.0); BG METHEMOGLOBIN 0.4 % (0.0-1.5); BG OXYHEMOGLOBIN 98.4 % (94.0-97.0); BG PCO2 34.2 mmHg (35.0-45.0); BG PH 7.484 (7.350-7.450); BG PO2 182.3 mmHg (75.0-100.0); BG SAMPLE SITE LEFT RADIAL; BG TIDAL VOLUME(mL) 500 mL; BG TOTAL HEMOGLOBIN 10.4 g/dL (12.0-18.0); BG VENT MODE VENT - A/C; BG VENT RATE 12 set
[2018-10-24 08:53] LABS: INR 1.7; PARTIAL THROMBOPLASTIN TIME 43.2 sec (23.4-31.0); PROTHROMBIN TIME 16.7 sec (9.1-11.1)
[2018-10-24] MEDS: DOCUSATE SODIUM SUGAR FREE 100MG/10ML UDC NG SCH (09:00)
[2018-10-24] MEDS: PANTOPRAZOLE SODIUM 40 MG/VIAL IV SCH (09:42)
[2018-10-24] MEDS: METHYLPREDNISOLONE SOD SUCC 40 MG/ML VIAL IV SCH (12:29)
[2018-10-24] MEDS: MICAFUNGIN 100 MG in SODIUM CHLORIDE 0.9% 100 ML IV SCH (14:13)
[2018-10-24] MEDS ORDERED: VECURONIUM BROMIDE 10 MG/VIAL IV ONE (16:04)
[2018-10-24] MEDS ORDERED: MIDAZOLAM HCL 2 MG/2 ML VIAL ONE (16:04)
[2018-10-24] MEDS ORDERED: CEFAZOLIN SODIUM 1000MG/VIAL ONE (16:31)
[2018-10-24 17:02] LABS: PLATELET ESTIMATE NORMAL
[2018-10-25] VITALS (56 sets, daily range): BP systolic 112–188; BP diastolic 55–97
[2018-10-25] MEDS: BLOOD SUGAR DIAGNOSTIC STRIP TEST SCH ×5 (00:31→23:58)
[2018-10-25] MEDS: INSULIN LISPRO 100 UNITS/ML SUBCUT SCH ×4 (00:31→18:32)
[2018-10-25] MEDS: DEXT 5%/0.45% NACL 1000ML 1,000 ML IV SCH (06:01)
[2018-10-25] MEDS: DOCUSATE SODIUM SUGAR FREE 100MG/10ML UDC NG SCH (09:00)
[2018-10-25] MEDS: IPRATROPIUM/ALBUTEROL 0.5-3(2.5)MG/3ML NEB HHN PRN ×3 (09:23→20:32)
[2018-10-25] MEDS: PANTOPRAZOLE SODIUM 40 MG/VIAL IV SCH (10:51)
[2018-10-25] MEDS: METHYLPREDNISOLONE SOD SUCC 40 MG/ML VIAL IV SCH (12:15)
[2018-10-25] MEDS: MICAFUNGIN 100 MG in SODIUM CHLORIDE 0.9% 100 ML IV SCH (14:00)
[2018-10-25 16:23] LABS: HEMATOCRIT. 31.9 % (36.0-48.0); HEMOGLOBIN. 10.4 g/dL (12.0-16.0); MEAN CORPUSCULAR HEMOGLOBIN 28.2 pg (28.0-32.0); MEAN CORPUSCULAR VOLUME 86.8 fL (81.0-99.0); MEAN PLATELET VOLUME 10.8 fl (7.4-10.4); PLATELET 190 x1000/uL (130-400); RED BLOOD CELL COUNT 3.67 mill/uL (4.2-5.4); RED CELL DISTRIBUTION WIDTH 16.9 % (11.6-14.6)
[2018-10-25 16:48] LABS: PHOSPHORUS 4.7 mg/dL (2.5-4.9)
[2018-10-25] MEDS: ENALAPRIL 2.5MG/2ML VIAL 2ML IV PRN (16:49)
[2018-10-25 18:17] LABS: PLATELET ESTIMATE NORMAL
[2018-10-26] VITALS (66 sets, daily range): BP systolic 106–171; BP diastolic 56–95
[2018-10-26 05:42] LABS: HEMATOCRIT. 27.7 % (36.0-48.0); HEMOGLOBIN. 9.1 g/dL (12.0-16.0); MEAN CORPUSCULAR HEMOGLOBIN 28.8 pg (28.0-32.0); MEAN CORPUSCULAR VOLUME 87.6 fL (81.0-99.0); MEAN PLATELET VOLUME 10.7 fl (7.4-10.4); PLATELET 156 x1000/uL (130-400); RED BLOOD CELL COUNT 3.16 mill/uL (4.2-5.4); RED CELL DISTRIBUTION WIDTH 16.8 % (11.6-14.6)
[2018-10-26 05:44] LABS: CHLORIDE 96 mEq/L (98-107); INR 1.5; PARTIAL THROMBOPLASTIN TIME 35.4 sec (23.4-31.0); PROTHROMBIN TIME 14.9 sec (9.1-11.1)
[2018-10-26] MEDS: BLOOD SUGAR DIAGNOSTIC STRIP TEST SCH ×4 (06:00→23:12)
[2018-10-26] MEDS: INSULIN LISPRO 100 UNITS/ML SUBCUT SCH ×5 (06:00→23:12)
[2018-10-26 07:13] LABS: PLATELET ESTIMATE NORMAL
[2018-10-26] MEDS: PANTOPRAZOLE SODIUM 40 MG/VIAL IV SCH (09:02)
[2018-10-26] MEDS: DOCUSATE SODIUM SUGAR FREE 100MG/10ML UDC NG SCH (09:02)
[2018-10-26] MEDS: DEXT 5%/0.45% NACL 1000ML 1,000 ML IV SCH (09:02)
[2018-10-26] MEDS: CLONIDINE 0.1MG TABLET PO PRN (10:11)
[2018-10-26] MEDS: METHYLPREDNISOLONE SOD SUCC 40 MG/ML VIAL IV SCH (11:41)
[2018-10-26] MEDS: LEVOFLOXACIN 250MG TABLET NG SCH (11:41)
[2018-10-26] MEDS ORDERED: CEFAZOLIN 1000MG PREMIX 50 ML IV SCH (13:00)
[2018-10-26 13:42] LABS: HCG SCREEN NEGATIVE
[2018-10-26] MEDS: MICAFUNGIN 100 MG in SODIUM CHLORIDE 0.9% 100 ML IV SCH (14:26)
[2018-10-26] MEDS ORDERED: FENTANYL CITRATE/PF 50MCG/ML 2ML VIAL ONE (15:10)
[2018-10-26] MEDS ORDERED: MIDAZOLAM HCL 5 MG/5 ML VIAL ONE (15:10)
[2018-10-26] MEDS ORDERED: MIDAZOLAM HCL 5 MG/5 ML VIAL IV PRN (15:27)
[2018-10-26] MEDS ORDERED: SODIUM CHLORIDE 0.9% 10ML VIAL ONE (16:17)
[2018-10-26] MEDS: AMLODIPINE 2.5MG TABLET NG SCH (17:32)
[2018-10-27] VITALS (81 sets, daily range): BP systolic 104–200; BP diastolic 50–97
[2018-10-27] MEDS: INSULIN LISPRO 100 UNITS/ML SUBCUT SCH ×3 (05:33→18:42)
[2018-10-27] MEDS: BLOOD SUGAR DIAGNOSTIC STRIP TEST SCH ×3 (06:54→18:41)
[2018-10-27] MEDS: CLONIDINE 0.1MG TABLET PO PRN (06:54)
[2018-10-27 07:13] LABS: HEMATOCRIT. 28.9 % (36.0-48.0); HEMOGLOBIN. 9.5 g/dL (12.0-16.0); MEAN CORPUSCULAR VOLUME 87.9 fL (81.0-99.0); MEAN PLATELET VOLUME 10.4 fl (7.4-10.4); PLATELET 173 x1000/uL (130-400); RED BLOOD CELL COUNT 3.28 mill/uL (4.2-5.4); RED CELL DISTRIBUTION WIDTH 17.1 % (11.6-14.6)
[2018-10-27] MEDS: IPRATROPIUM/ALBUTEROL 0.5-3(2.5)MG/3ML NEB HHN PRN ×4 (08:44→20:33)
[2018-10-27] MEDS: AMLODIPINE 2.5MG TABLET NG SCH ×2 (09:00→10:53)
[2018-10-27] MEDS: PANTOPRAZOLE SODIUM 40 MG/VIAL IV SCH (10:02)
[2018-10-27] MEDS: DOCUSATE SODIUM SUGAR FREE 100MG/10ML UDC NG SCH (10:02)
[2018-10-27] MEDS: LEVOFLOXACIN 250MG TABLET NG SCH (10:12)
[2018-10-27] MEDS: METHYLPREDNISOLONE SOD SUCC 40 MG/ML VIAL IV SCH (11:03)
[2018-10-27] MEDS: MICAFUNGIN 100 MG in SODIUM CHLORIDE 0.9% 100 ML IV SCH (15:20)
[2018-10-27] MEDS: DEXT 5%/0.45% NACL 1000ML 1,000 ML IV SCH (18:42)
[2018-10-27 20:24] LABS: PLATELET ESTIMATE NORMAL
[2018-10-28] VITALS (73 sets, daily range): BP systolic 129–203; BP diastolic 64–111
[2018-10-28] MEDS: INSULIN LISPRO 100 UNITS/ML SUBCUT SCH ×5 (01:09→23:37)
[2018-10-28] MEDS: BLOOD SUGAR DIAGNOSTIC STRIP TEST SCH ×5 (05:49→23:33)
[2018-10-28] MEDS: IPRATROPIUM/ALBUTEROL 0.5-3(2.5)MG/3ML NEB HHN PRN ×2 (08:35→12:04)
[2018-10-28] MEDS: DOCUSATE SODIUM SUGAR FREE 100MG/10ML UDC NG SCH (09:00)
[2018-10-28] MEDS: AMLODIPINE 2.5MG TABLET NG SCH (09:29)
[2018-10-28] MEDS: PANTOPRAZOLE SODIUM 40 MG/VIAL IV SCH (09:29)
[2018-10-28] MEDS: DEXT 5%/0.45% NACL 1000ML 1,000 ML IV SCH (10:00)
[2018-10-28] MEDS: METHYLPREDNISOLONE SOD SUCC 40 MG/ML VIAL IV SCH (11:26)
[2018-10-28] MEDS: LEVOFLOXACIN 250MG TABLET NG SCH (11:26)
[2018-10-28] MEDS: MICAFUNGIN 100 MG in SODIUM CHLORIDE 0.9% 100 ML IV SCH (15:11)
[2018-10-28] MEDS: CLONIDINE 0.1MG TABLET PO PRN ×2 (15:18→18:40)
[2018-10-29] VITALS (50 sets, daily range): BP systolic 137–179; BP diastolic 63–90
[2018-10-29] MEDS: BLOOD SUGAR DIAGNOSTIC STRIP TEST SCH ×3 (05:42→17:55)
[2018-10-29] MEDS: INSULIN LISPRO 100 UNITS/ML SUBCUT SCH ×3 (05:46→18:01)
[2018-10-29 05:47] LABS: HEMOGLOBIN. 8.9 g/dL (12.0-16.0); MEAN CORPUSCULAR HEMOGLOBIN 29.8 pg (28.0-32.0); MEAN CORPUSCULAR VOLUME 87.3 fL (81.0-99.0); MEAN PLATELET VOLUME 10.7 fl (7.4-10.4); PLATELET 102 x1000/uL (130-400); RED BLOOD CELL COUNT 2.98 mill/uL (4.2-5.4); RED CELL DISTRIBUTION WIDTH 17.1 % (11.6-14.6)
[2018-10-29] MEDS: IPRATROPIUM/ALBUTEROL 0.5-3(2.5)MG/3ML NEB HHN PRN ×3 (08:17→16:11)
[2018-10-29 08:52] LABS: BG CARBOXYHEMOGLOBIN 0.4 % (0.5-1.5); BG DEOXYHEMOGLOBIN 2.3 % (0.0-5.0); BG FRACTION INSPIRED OXYGEN 45; BG HCO3 ACT 24.7 mmol/L (22.0-26.0); BG METHEMOGLOBIN 0.2 % (0.0-1.5); BG OXYGEN SATURATION 97.7 % (92.0-98.5); BG OXYHEMOGLOBIN 97.1 % (94.0-97.0); BG PCO2 39.9 mmHg (35.0-45.0); BG PH 7.409 (7.350-7.450); BG PO2 105.7 mmHg (75.0-100.0); BG SAMPLE SITE LEFT RADIAL; BG TIDAL VOLUME(mL) 500 mL; BG TOTAL HEMOGLOBIN 8.7 g/dL (12.0-18.0); BG VENT MODE VENT - A/C; BG VENT RATE 12 set
[2018-10-29] MEDS: PANTOPRAZOLE SODIUM 40 MG/VIAL IV SCH (09:05)
[2018-10-29] MEDS: DOCUSATE SODIUM SUGAR FREE 100MG/10ML UDC NG SCH (09:05)
[2018-10-29] MEDS: AMLODIPINE 2.5MG TABLET NG SCH (09:06)
[2018-10-29] MEDS: DEXT 5%/0.45% NACL 1000ML 1,000 ML IV SCH (09:07)
[2018-10-29 11:05] LABS: PLATELET ESTIMATE SLIGHTLY DECREASED
[2018-10-29] MEDS: METHYLPREDNISOLONE SOD SUCC 40 MG/ML VIAL IV SCH (12:18)
[2018-10-29] MEDS: LEVOFLOXACIN 250MG TABLET NG SCH (12:18)
[2018-10-29] MEDS: ENALAPRIL 2.5MG/2ML VIAL 2ML IV PRN (13:50)
[2018-10-29] MEDS: MICAFUNGIN 100 MG in SODIUM CHLORIDE 0.9% 100 ML IV SCH (14:17)
[2018-10-29] MEDS: CLONIDINE 0.1MG TABLET PO PRN (14:54)
[2018-10-30] VITALS (53 sets, daily range): BP systolic 136–178; BP diastolic 60–95
[2018-10-30] MEDS: BLOOD SUGAR DIAGNOSTIC STRIP TEST SCH ×5 (00:25→23:37)
[2018-10-30] MEDS: INSULIN LISPRO 100 UNITS/ML SUBCUT SCH ×5 (00:26→23:47)
[2018-10-30 06:11] LABS: HEMATOCRIT. 23.6 % (36.0-48.0); HEMOGLOBIN. 7.9 g/dL (12.0-16.0); MEAN CORPUSCULAR VOLUME 86.7 fL (81.0-99.0); MEAN PLATELET VOLUME 10.6 fl (7.4-10.4); PLATELET 75 x1000/uL (130-400); RED BLOOD CELL COUNT 2.72 mill/uL (4.2-5.4)
[2018-10-30] MEDS: DOCUSATE SODIUM SUGAR FREE 100MG/10ML UDC NG SCH (08:50)
[2018-10-30] MEDS: AMLODIPINE 2.5MG TABLET NG SCH (08:50)
[2018-10-30] MEDS: PANTOPRAZOLE SODIUM 40 MG/VIAL IV SCH (08:50)
[2018-10-30 09:59] LABS: NUCLEATED RED BLOOD CELLS 1 /100 WBC; PLATELET ESTIMATE DECREASED
[2018-10-30] MEDS: LEVOFLOXACIN 250MG TABLET NG SCH (11:26)
[2018-10-30] MEDS: METHYLPREDNISOLONE SOD SUCC 40 MG/ML VIAL IV SCH (11:26)
[2018-10-30] MEDS: MICAFUNGIN 100 MG in SODIUM CHLORIDE 0.9% 100 ML IV SCH (14:42)
[2018-10-30] MEDS: ENALAPRIL 2.5MG/2ML VIAL 2ML IV PRN ×2 (14:42→23:37)
[2018-10-30] MEDS: DEXT 5%/0.45% NACL 1000ML 1,000 ML IV SCH (15:17)
[2018-10-30] MEDS: CLONIDINE 0.1MG TABLET PO PRN (21:05)
[2018-10-31] VITALS (79 sets, daily range): BP systolic 126–201; BP diastolic 68–114
[2018-10-31] MEDS: BLOOD SUGAR DIAGNOSTIC STRIP TEST SCH ×4 (05:09→23:02)
[2018-10-31] MEDS: INSULIN LISPRO 100 UNITS/ML SUBCUT SCH ×4 (05:09→23:02)
[2018-10-31] MEDS: DOCUSATE SODIUM SUGAR FREE 100MG/10ML UDC NG SCH (09:12)
[2018-10-31] MEDS: PANTOPRAZOLE SODIUM 40 MG/VIAL IV SCH (09:12)
[2018-10-31] MEDS: AMLODIPINE 2.5MG TABLET NG SCH (09:13)
[2018-10-31] MEDS: DEXT 5%/0.45% NACL 1000ML 1,000 ML IV SCH (11:45)
[2018-10-31] MEDS: LEVOFLOXACIN 250MG TABLET NG SCH (11:45)
[2018-10-31] MEDS: METHYLPREDNISOLONE SOD SUCC 40 MG/ML VIAL IV SCH (11:45)
[2018-10-31] MEDS: ENALAPRIL 2.5MG/2ML VIAL 2ML IV PRN ×2 (14:19→20:56)
[2018-10-31] MEDS: MICAFUNGIN 100 MG in SODIUM CHLORIDE 0.9% 100 ML IV SCH (14:20)
[2018-10-31] MEDS: CLONIDINE 0.1MG TABLET PO PRN ×2 (17:01→23:01)
[2018-10-31] MEDS: IPRATROPIUM/ALBUTEROL 0.5-3(2.5)MG/3ML NEB HHN PRN (20:37)
[2018-11-01] VITALS (91 sets, daily range): BP systolic 115–171; BP diastolic 58–89
[2018-11-01] MEDS: IPRATROPIUM/ALBUTEROL 0.5-3(2.5)MG/3ML NEB HHN PRN ×2 (00:19→04:33)
[2018-11-01] MEDS: BLOOD SUGAR DIAGNOSTIC STRIP TEST SCH ×3 (06:02→18:10)
[2018-11-01] MEDS: INSULIN LISPRO 100 UNITS/ML SUBCUT SCH ×3 (06:13→18:11)
[2018-11-01] MEDS: PANTOPRAZOLE SODIUM 40 MG/VIAL IV SCH (09:39)
[2018-11-01] MEDS: AMLODIPINE 2.5MG TABLET NG SCH (09:39)
[2018-11-01] MEDS: DOCUSATE SODIUM SUGAR FREE 100MG/10ML UDC NG SCH (09:39)
[2018-11-01] MEDS: LEVOFLOXACIN 250MG TABLET NG SCH (11:59)
[2018-11-01] MEDS: METHYLPREDNISOLONE SOD SUCC 40 MG/ML VIAL IV SCH (12:15)
[2018-11-01] MEDS ORDERED: MORPHINE SULFATE 250 MG in DEXT 5% WATER 240 ML IV PRN (14:30)
[2018-11-01] MEDS: MICAFUNGIN 100 MG in SODIUM CHLORIDE 0.9% 100 ML IV SCH (15:04)
[2018-11-02] VITALS (103 sets, daily range): BP systolic 89–194; BP diastolic 43–109
[2018-11-02] MEDS: INSULIN LISPRO 100 UNITS/ML SUBCUT SCH ×4 (00:58→19:09)
[2018-11-02] MEDS: ENALAPRIL 2.5MG/2ML VIAL 2ML IV PRN (01:46)
[2018-11-02] MEDS: BLOOD SUGAR DIAGNOSTIC STRIP TEST SCH ×4 (06:00→18:31)
[2018-11-02] MEDS: IPRATROPIUM/ALBUTEROL 0.5-3(2.5)MG/3ML NEB HHN PRN ×2 (07:45→15:19)
[2018-11-02] MEDS: DOCUSATE SODIUM SUGAR FREE 100MG/10ML UDC NG SCH (09:00)
[2018-11-02] MEDS: PANTOPRAZOLE SODIUM 40 MG/VIAL IV SCH (10:12)
[2018-11-02] MEDS: LEVOFLOXACIN 250MG TABLET NG SCH (10:12)
[2018-11-02] MEDS: AMLODIPINE 2.5MG TABLET NG SCH (10:12)
[2018-11-02] MEDS: METHYLPREDNISOLONE SOD SUCC 40 MG/ML VIAL IV SCH (12:50)
[2018-11-02 12:51] LABS: HEMATOCRIT. 24.4 % (36.0-48.0); HEMOGLOBIN. 8.1 g/dL (12.0-16.0); MEAN CORPUSCULAR VOLUME 87.7 fL (81.0-99.0); RED BLOOD CELL COUNT 2.78 mill/uL (4.2-5.4); RED CELL DISTRIBUTION WIDTH 16.9 % (11.6-14.6)
[2018-11-02 13:11] LABS: PLATELET 44 x1000/uL (130-400)
[2018-11-02 13:59] LABS: PLATELET ESTIMATE DECREASED
[2018-11-02] MEDS: MICAFUNGIN 100 MG in SODIUM CHLORIDE 0.9% 100 ML IV SCH (15:32)
[2018-11-03] VITALS (35 sets, daily range): BP systolic 131–198; BP diastolic 58–118
[2018-11-03] MEDS: BLOOD SUGAR DIAGNOSTIC STRIP TEST SCH ×4 (00:10→17:13)
[2018-11-03] MEDS: INSULIN LISPRO 100 UNITS/ML SUBCUT SCH ×4 (00:17→17:13)
[2018-11-03] MEDS: IPRATROPIUM/ALBUTEROL 0.5-3(2.5)MG/3ML NEB HHN PRN ×3 (00:28→19:54)
[2018-11-03] MEDS: DEXT 5%/0.45% NACL 1000ML 1,000 ML IV SCH ×2 (03:18→10:00)
[2018-11-03] MEDS: ENALAPRIL 2.5MG/2ML VIAL 2ML IV PRN ×2 (03:31→22:14)
[2018-11-03 04:57] LABS: HEMATOCRIT. 28.4 % (36.0-48.0); HEMOGLOBIN. 9.4 g/dL (12.0-16.0); MEAN CORPUSCULAR VOLUME 87.2 fL (81.0-99.0); MEAN PLATELET VOLUME 11.7 fl (7.4-10.4); RED BLOOD CELL COUNT 3.26 mill/uL (4.2-5.4); RED CELL DISTRIBUTION WIDTH 16.9 % (11.6-14.6)
[2018-11-03] MEDS: PANTOPRAZOLE SODIUM 40 MG/VIAL IV SCH (08:44)
[2018-11-03] MEDS: AMLODIPINE 5MG TABLET NG SCH ×2 (08:45→20:30)
[2018-11-03] MEDS: DOCUSATE SODIUM SUGAR FREE 100MG/10ML UDC NG SCH (08:45)
[2018-11-03 11:13] LABS: PLATELET ESTIMATE MARKEDLY DECREASED
[2018-11-03 11:14] LABS: PLATELET 48 x1000/uL (130-400)
[2018-11-03] MEDS: LEVOFLOXACIN 250MG TABLET NG SCH (11:51)
[2018-11-03] MEDS: METHYLPREDNISOLONE SOD SUCC 40 MG/ML VIAL IV SCH (11:54)
[2018-11-03] MEDS: MICAFUNGIN 100 MG in SODIUM CHLORIDE 0.9% 100 ML IV SCH (14:46)
[2018-11-04] VITALS (16 sets, daily range): BP systolic 137–178; BP diastolic 65–88
[2018-11-04] MEDS: BLOOD SUGAR DIAGNOSTIC STRIP TEST SCH ×5 (00:24→23:12)
[2018-11-04] MEDS: IPRATROPIUM/ALBUTEROL 0.5-3(2.5)MG/3ML NEB HHN PRN ×2 (00:24→04:20)
[2018-11-04] MEDS: CLONIDINE 0.1MG TABLET PO PRN (00:31)
[2018-11-04] MEDS: INSULIN LISPRO 100 UNITS/ML SUBCUT SCH ×5 (00:31→23:31)
[2018-11-04] MEDS: ENALAPRIL 2.5MG/2ML VIAL 2ML IV PRN (04:16)
[2018-11-04 07:29] LABS: BASOPHILS % 0.1 % (0.0-2.0); EOSINOPHILS % 0.1 % (0.0-5.0); HEMATOCRIT. 21.9 % (36.0-48.0); HEMOGLOBIN. 7.3 g/dL (12.0-16.0); LYMPHOCYTES % 4.8 % (20.0-50.0); MEAN CORPUSCULAR HEMOGLOBIN 29.3 pg (28.0-32.0); MEAN CORPUSCULAR VOLUME 88.1 fL (81.0-99.0); MEAN PLATELET VOLUME 11.3 fl (7.4-10.4); MONOCYTES % 4.5 % (2.0-8.0); NEUTROPHILS % 90.5 % (40.0-76.0); RED BLOOD CELL COUNT 2.48 mill/uL (4.2-5.4); RED CELL DISTRIBUTION WIDTH 16.9 % (11.6-14.6)
[2018-11-04 08:03] LABS: PLATELET 45 x1000/uL (130-400)
[2018-11-04] MEDS: AMLODIPINE 5MG TABLET NG SCH ×2 (09:00→21:09)
[2018-11-04] MEDS: DOCUSATE SODIUM SUGAR FREE 100MG/10ML UDC NG SCH (09:00)
[2018-11-04] MEDS: PANTOPRAZOLE SODIUM 40 MG/VIAL IV SCH (09:05)
[2018-11-04] MEDS: DEXT 5%/0.45% NACL 1000ML 1,000 ML IV SCH (09:06)
[2018-11-04] MEDS: METHYLPREDNISOLONE SOD SUCC 40 MG/ML VIAL IV SCH (11:16)
[2018-11-04] MEDS: LEVOFLOXACIN 250MG TABLET NG SCH (11:16)
[2018-11-04 12:04] LABS: HEMATOCRIT 19.4 % (36.0-48.0); HEMOGLOBIN 6.5 g/dL (12.0-16.0)
[2018-11-04 21:54] LABS: HEMATOCRIT 24.4 % (36.0-48.0); HEMOGLOBIN 8.2 g/dL (12.0-16.0)
[2018-11-05] VITALS (12 sets, daily range): BP systolic 131–178; BP diastolic 63–89
[2018-11-05] MEDS: IPRATROPIUM/ALBUTEROL 0.5-3(2.5)MG/3ML NEB HHN PRN (00:54)
[2018-11-05] MEDS: BLOOD SUGAR DIAGNOSTIC STRIP TEST SCH ×3 (06:00→18:23)
[2018-11-05] MEDS: INSULIN LISPRO 100 UNITS/ML SUBCUT SCH ×3 (07:26→18:57)
[2018-11-05] MEDS: DOCUSATE SODIUM SUGAR FREE 100MG/10ML UDC NG SCH (09:00)
[2018-11-05] MEDS: PANTOPRAZOLE SODIUM 40 MG/VIAL IV SCH (09:03)
[2018-11-05] MEDS: AMLODIPINE 5MG TABLET NG SCH ×2 (09:03→20:41)
[2018-11-05] MEDS: DEXT 5%/0.45% NACL 1000ML 1,000 ML IV SCH (10:00)
[2018-11-05] MEDS: LEVOFLOXACIN 250MG TABLET NG SCH (11:07)
[2018-11-05] MEDS: METHYLPREDNISOLONE SOD SUCC 40 MG/ML VIAL IV SCH (11:07)
[2018-11-05] MEDS: HYDRALAZINE HCL 25MG TABLET GT SCH ×2 (13:21→22:53)
[2018-11-06] VITALS (13 sets, daily range): BP systolic 134–177; BP diastolic 64–80
[2018-11-06] MEDS: INSULIN LISPRO 100 UNITS/ML SUBCUT SCH ×4 (01:04→19:03)
[2018-11-06] MEDS: BLOOD SUGAR DIAGNOSTIC STRIP TEST SCH ×4 (06:00→18:56)
[2018-11-06] MEDS: HYDRALAZINE HCL 25MG TABLET GT SCH ×3 (06:11→21:38)
[2018-11-06 07:07] LABS: HEMATOCRIT. 23.8 % (36.0-48.0); HEMOGLOBIN. 8.2 g/dL (12.0-16.0); MEAN CORPUSCULAR VOLUME 87.3 fL (81.0-99.0); MEAN PLATELET VOLUME 10.8 fl (7.4-10.4); PLATELET 78 x1000/uL (130-400); RED BLOOD CELL COUNT 2.73 mill/uL (4.2-5.4); RED CELL DISTRIBUTION WIDTH 16.4 % (11.6-14.6)
[2018-11-06] MEDS: IPRATROPIUM/ALBUTEROL 0.5-3(2.5)MG/3ML NEB HHN PRN ×3 (09:05→20:18)
[2018-11-06] MEDS: AMLODIPINE 5MG TABLET NG SCH ×2 (09:10→21:38)
[2018-11-06] MEDS: DEXT 5%/0.45% NACL 1000ML 1,000 ML IV SCH (09:10)
[2018-11-06] MEDS: PANTOPRAZOLE SODIUM 40 MG/VIAL IV SCH (09:10)
[2018-11-06] MEDS: DOCUSATE SODIUM SUGAR FREE 100MG/10ML UDC NG SCH (09:10)
[2018-11-06] MEDS: ENALAPRIL 2.5MG/2ML VIAL 2ML IV PRN (12:24)
[2018-11-06 12:42] LABS: PLATELET ESTIMATE DECREASED
[2018-11-06] MEDS: METHYLPREDNISOLONE SOD SUCC 40 MG/ML VIAL IV SCH (12:42)
[2018-11-07] VITALS (12 sets, daily range): BP systolic 129–185; BP diastolic 57–88
[2018-11-07] MEDS: BLOOD SUGAR DIAGNOSTIC STRIP TEST SCH ×5 (00:45→23:53)
[2018-11-07] MEDS: INSULIN LISPRO 100 UNITS/ML SUBCUT SCH ×4 (00:45→17:44)
[2018-11-07] MEDS: IPRATROPIUM/ALBUTEROL 0.5-3(2.5)MG/3ML NEB HHN PRN (04:15)
[2018-11-07] MEDS: HYDRALAZINE HCL 25MG TABLET GT SCH ×4 (06:07→21:39)
[2018-11-07] MEDS: PANTOPRAZOLE SODIUM 40 MG/VIAL IV SCH (08:46)
[2018-11-07] MEDS: AMLODIPINE 5MG TABLET NG SCH ×2 (08:46→21:00)
[2018-11-07] MEDS: DOCUSATE SODIUM SUGAR FREE 100MG/10ML UDC NG SCH (08:46)
[2018-11-07] MEDS: METHYLPREDNISOLONE SOD SUCC 40 MG/ML VIAL IV SCH (11:46)
[2018-11-08] VITALS (17 sets, daily range): BP systolic 116–167; BP diastolic 57–84
[2018-11-08] MEDS: INSULIN LISPRO 100 UNITS/ML SUBCUT SCH ×4 (00:08→18:10)
[2018-11-08] MEDS: BLOOD SUGAR DIAGNOSTIC STRIP TEST SCH ×3 (06:23→18:09)
[2018-11-08] MEDS: HYDRALAZINE HCL 25MG TABLET GT SCH ×2 (06:23→14:46)
[2018-11-08] MEDS: DOCUSATE SODIUM SUGAR FREE 100MG/10ML UDC NG SCH (09:10)
[2018-11-08] MEDS: PANTOPRAZOLE SODIUM 40 MG/VIAL IV SCH (09:10)
[2018-11-08] MEDS: AMLODIPINE 5MG TABLET NG SCH (09:11)
[2018-11-08 09:44] LABS: HEMATOCRIT 21.9 % (36.0-48.0); HEMOGLOBIN 7.4 g/dL (12.0-16.0); MEAN CORPUSCULAR HEMOGLOBIN 29.6 pg (28.0-32.0); MEAN CORPUSCULAR VOLUME 87.9 fL (81.0-99.0); PLATELET 129 x1000/uL (130-400); RED CELL DISTRIBUTION WIDTH 15.8 % (11.6-14.6)
[2018-11-08] MEDS: METHYLPREDNISOLONE SOD SUCC 40 MG/ML VIAL IV SCH (11:36)
[2018-11-08] MEDS: CLONIDINE 0.1MG TABLET PO PRN ×2 (11:57→19:57)
[2018-11-09] MEDS ORDERED: FOLIC ACID/VITAMIN B COMP W-C TABLET PO SCH (09:00)
== END 2018-11-08 21:35 | DRG 3 ==
LOC: ER 14:41 → 8WST 18:08 → EDBEDREQTM 18:11 → EDBEDREQ 18:11 → ENRESERV 20:58 → MICUSO 10-14 17:56 → 5EST 11-03 15:30
PROVIDERS: ADMIT Internal Medicine; ATTEND Internal Medicine
PROC: 5A1955Z Respiratory Ventilation, Greater than 96 Consecutive Hours (ICD-10-PCS; principal; 2018-10-14)
PROC: 30233R1 Transfusion of Nonautologous Platelets into Peripheral Vein, Percutaneous Approach (ICD-10-PCS; 2018-10-14)
PROC: 30233N1 Transfusion of Nonautologous Red Blood Cells into Peripheral Vein, Percutaneous Approach (ICD-10-PCS; 2018-10-14)
PROC: 0BH17EZ Insertion of Endotracheal Airway into Trachea, Via Natural or Artificial Opening (ICD-10-PCS; 2018-10-14)
PROC: 5A12012 Performance of Cardiac Output, Single, Manual (ICD-10-PCS; 2018-10-14)
PROC: 05HY33Z Insertion of Infusion Device into Upper Vein, Percutaneous Approach (ICD-10-PCS; 2018-10-14)
PROC: B544ZZA Ultrasonography of Left Jugular Veins, Guidance (ICD-10-PCS; 2018-10-14)
PROC: 5A1D70Z Performance of Urinary Filtration, Intermittent, Less than 6 Hours Per Day (ICD-10-PCS; 2018-10-16)
PROC: 5A1D70Z Performance of Urinary Filtration, Intermittent, Less than 6 Hours Per Day (ICD-10-PCS; 2018-10-17)
PROC: 5A1D70Z Performance of Urinary Filtration, Intermittent, Less than 6 Hours Per Day (ICD-10-PCS; 2018-10-20)
PROC: 5A1D70Z Performance of Urinary Filtration, Intermittent, Less than 6 Hours Per Day (ICD-10-PCS; 2018-10-23)
PROC: 5A1D70Z Performance of Urinary Filtration, Intermittent, Less than 6 Hours Per Day (ICD-10-PCS; 2018-10-24)
PROC: 0GBJ0ZZ Excision of Thyroid Gland Isthmus, Open Approach (ICD-10-PCS; 2018-10-24)
PROC: 0B110F4 Bypass Trachea to Cutaneous with Tracheostomy Device, Open Approach (ICD-10-PCS; 2018-10-26)
PROC: 5A1D70Z Performance of Urinary Filtration, Intermittent, Less than 6 Hours Per Day (ICD-10-PCS; 2018-10-26)
PROC: 0DJ08ZZ Inspection of Upper Intestinal Tract, Via Natural or Artificial Opening Endoscopic (ICD-10-PCS; 2018-10-26)
PROC: 5A1D70Z Performance of Urinary Filtration, Intermittent, Less than 6 Hours Per Day (ICD-10-PCS; 2018-10-30)
PROC: 5A1D70Z Performance of Urinary Filtration, Intermittent, Less than 6 Hours Per Day (ICD-10-PCS; 2018-11-02)
PROC: 5A1D70Z Performance of Urinary Filtration, Intermittent, Less than 6 Hours Per Day (ICD-10-PCS; 2018-11-04)
PROC: 5A1D70Z Performance of Urinary Filtration, Intermittent, Less than 6 Hours Per Day (ICD-10-PCS; 2018-11-07)
DX: A40.3 Sepsis due to Streptococcus pneumoniae (principal); N18.6 End stage renal disease; J96.01 Acute respiratory failure with hypoxia; E43 Unspecified severe protein-calorie malnutrition; R65.21 Severe sepsis with septic shock; B37.7 Candidal sepsis; G93.41 Metabolic encephalopathy; J69.0 Pneumonitis due to inhalation of food and vomit; I46.9 Cardiac arrest, cause unspecified; I13.2 Hypertensive heart and chronic kidney disease with heart failure and with stage 5 chronic kidney disease, or end stage renal disease; D61.818 Other pancytopenia; G93.1 Anoxic brain damage, not elsewhere classified; I31.3 Pericardial effusion (noninflammatory); I42.9 Cardiomyopathy, unspecified; R18.8 Other ascites; R64 Cachexia; K22.10 Ulcer of esophagus without bleeding; Z99.11 Dependence on respirator [ventilator] status; E16.2 Hypoglycemia, unspecified; I50.9 Heart failure, unspecified; M32.9 Systemic lupus erythematosus, unspecified; I07.1 Rheumatic tricuspid insufficiency; I25.10 Atherosclerotic heart disease of native coronary artery without angina pectoris; I27.20 Pulmonary hypertension, unspecified; E87.6 Hypokalemia; I48.0 Paroxysmal atrial fibrillation; J44.9 Chronic obstructive pulmonary disease, unspecified; K21.9 Gastro-esophageal reflux disease without esophagitis; Z51.5 Encounter for palliative care; Z66 Do not resuscitate; R62.7 Adult failure to thrive; K44.9 Diaphragmatic hernia without obstruction or gangrene; K27.9 Peptic ulcer, site unspecified, unspecified as acute or chronic, without hemorrhage or perforation; Y95 Nosocomial condition; Z85.6 Personal history of leukemia; Z68.32 Body mass index [BMI] 32.0-32.9, adult; Z99.2 Dependence on renal dialysis; Z86.74 Personal history of sudden cardiac arrest; Z88.6 Allergy status to analgesic agent; Z87.11 Personal history of peptic ulcer disease; Z88.5 Allergy status to narcotic agent; Z88.1 Allergy status to other antibiotic agents; Z91.013 Allergy to seafood; Z88.8 Allergy status to other drugs, medicaments and biological substances; Z91.018 Allergy to other foods
CPT/HCPCS: 31500; 36415; 36569; 36600; 71045; 74018; 76705; 76937; 80048; 80202; 82270; 82375; 82728; 82805; 82962; 83540; 83605; 83735; 83880; 84100; 84145; 84439; 84443; 84484; 84703; 85014; 85018; 85027; 86850; 86900; 86920; 87077; 87106; 87186; 87389; 90732; 92950; 93005; 93306; 93970; 94003; 94640; 96361; 96365; 96366; 96368; 96375; 96376; 99291; A6261; C1725; C9113; J0690; J0696; J0885; J1815; J2020; J2248; J2250; J2270; J2405; J2543; J2920; J2930; J3010; J3370; J3490; J7030; J7040; J7042; J7050; J7060; J7070; J7620; P9016; P9034